=== PATIENT | male | born 1950 | race Caucasian/White ===

== ENCOUNTER → 2016-10-29 | Outpatient (CLI) | payer OTHER | LOC: GMAH 16:51 | PROVIDERS: ATTEND Family Medicine | DX: M25.50 Pain in unspecified joint (principal) ==

== ENCOUNTER → 2017-02-19 | Outpatient (CLI) | payer OTHER | LOC: GMAH 10:36 | PROVIDERS: ATTEND Family Medicine | DX: N40.1 Benign prostatic hyperplasia with lower urinary tract symptoms (principal); N39.498 Other specified urinary incontinence ==

== ENCOUNTER → 2019-08-24 | Outpatient (CLI) | payer OTHER | LOC: GMA MATASK 10:25 | PROVIDERS: ATTEND Family Medicine | DX: E53.8 Deficiency of other specified B group vitamins (principal) ==

== ENCOUNTER → 2020-04-22 | Outpatient (CLI) | payer OTHER | LOC: GMA MATASK 10:31 | PROVIDERS: ATTEND Family Medicine | DX: Z12.5 Encounter for screening for malignant neoplasm of prostate (principal); E78.2 Mixed hyperlipidemia; I10 Essential (primary) hypertension | CPT/HCPCS: 84443; 84550; G0103 ==

== ENCOUNTER 2020-11-12 14:15 | Emergency (ER) | payer MEDICARE, OTHER ==
--- NOTE | 2020-11-12 14:17 | ED.PDOC ---
History of Present Illness - General Stated Complaint: Unresponsiveness Time Seen by Provider: 11/12/20 14:17 Additional Information: EMS reports the patient was found unresponsive at [facility]. He had filled prescriptions for perphenazine 8 mg and tramadol 50 mg earlier today. The pharmacy reported he was trying to fill some additional prescriptions when he became unresponsive.No additional history was available regarding what happened at the pharmacy. - History of Present Illness Initial Comments: The patient was initially Unable to give any history due to his condition. Later The patient noted that he drank a full bottle of whiskey yesterday and took a large number of pills. He was unable to elaborate which pills he took or how many. He also was unable to definitively answer whether or not taking so many pills was With the intent of self-harm orSeeking sedation and sleep. Timing/Duration: 1 hour Severity: severe Improving Factors: nothing Worsening Factors: nothing Allergies/Adverse Reactions: Allergies NO KNOWN ALLERGY Allergy (Unverified 11/12/20 14:36) Home Medications: Ambulatory Orders Metoprolol Succinate [Metoprolol Succinate ER] 50 mg PO BEDTIME 02/24/13 Pantoprazole Suspension [Protonix Suspension] 40 mg PO BEDTIME 02/24/13 Clopidogrel Bisulfate [Plavix] 75 mg PO QD 02/18/19 Losartan Potassium [Cozaar] 50 mg PO DAILY 02/18/19 Perphenazine/Amitrip 2-25 [Triavil 2-25] 2 ea PO BEDTIME 02/18/19 Rosuvastatin Calcium [Crestor] 40 mg PO BEDTIME 02/18/19 Review of Systems - Review of Systems Unable to Obtain Due To: condition - Patient is difficult to arouse and speech is very slurred. He is unable to give any coherent history. Past Medical History (General) - Patient Medical History Hx Seizures: Yes - 1 in taking zanax and stopped Hx Stroke: No Hx Dementia: No Hx Asthma: No Hx of COPD: No Hx Cardiac Disorders: Yes - 3 [facility] Hx Congestive Heart Failure: No Hx Pacemaker: No Hx Hypertension: Yes Hx Thyroid Disease: No Hx Diabetes: No Hx Gastroesophageal Reflux: Yes Hx Renal Disease: No Hx Cancer: No Hx of HIV: No Hx Hepatitis C: No Hx MRSA: No - Vaccination History Hx Tetanus, Diphtheria Vaccination: No Hx Influenza Vaccination: No Hx Pneumococcal Vaccination: Yes - Social History Hx Tobacco Use: No Hx Chewing Tobacco Use: No Hx Alcohol Use: Yes - 33 years 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 Eye Exam: bilateral normal Ears, Nose, Throat: other - Tongue very dry Neck: non-tender, full range of motion, supple Respiratory: normal breath sounds Cardiovascular/Chest: regular rate, rhythm Gastrointestinal/Abdominal: normal bowel sounds, tenderness - Diffusely, moderate, without rebound, other - No distention Back Exam: normal inspection, no CVA tenderness Neurologic: no motor/sensory deficits, other - Very somnolent, arousable to verbal, speech extremely slurred. Skin Exam: normal color Lymphatic: no adenopathy Progress - Progress Progress: 11/12/20 16:01 Normal saline infusion 1 L. Second IV infusion 1 L with 20 mEq potassium infused. 11/12/20 16:48 Discussed with nurse Shetty at the [facility].Perphenazine usually causes an anticholinergic syndrome which this patient does not seem to displaying. Tramadol can cause somnolence and drowsiness and could account for the patient's symptoms. pNo specific intervention other than conservative management and observation is recommended at this time. 11/12/20 16:50 Vital signs pulse 57, sats 98% on room air, respirations 14 unlabored, blood pressure 93/57 after first liter infusion. Patient is somnolent but arousable to verbal stimuli. 11/12/20 17:16 Discussed with nurse practitioner Karey Hospitalist on-call for [facility]: Patient is not suitable for admission to this facility. 11/12/20 18:12 Still sleepy but easy to arouse. Pulse 61, SaO2 96% room air, respirations 22, blood pressure 104/63. Transfer decision made. 11/12/20 18:48 Patient reexamined. He is fully alert and comfortable. He states his abdominal pain and nausea vomiting have completely subsided. Patient states that yesterday he did not take an excessive amount of pills but "only what was prescribed".He denies any suicidal ideation or intent. He Feels safe of discharge. Patient had a suicidal gesture in his distant past but has not been treated for depression In recent years. He initially denied drug use but when confronted with the results of his drug screen he did admit to taking marijuana and Valium.Vital signs: Pulse 68, sats 96% on room air, respirations 14 unlabored, blood pressure 129/81. Decision for transfer put on hold at this point. Patient is to be observed emergency room for several hours and dischar ged if improving and clinically stable. 11/12/20 18:51 11/12/20 20:24 Patient is now fully alert and conversant, safely ambulatory on his own. 11/12/20 20:26 Medical decision makin-year-old male who presented with altered mental status due to combination of illicit drug use and prescribed medications. Patient is fully recovered and is now fully alert. He denies overdose of prescription medications but does admit to taking some Illicit medications. Patient was drinking heavily yesterday with vomiting but this is now subsided. He denies abdominal pain or nausea at this time. Patient was questioned in detail about suicidal ideation and plan. He denies these and feels safe to go home. Family members will take him home. - Results/Orders Results/Orders: Electrocardiogram: Normal sinus rhythm, 77/min, normal tracing, Narrow complexes. EXAM DESCRIPTION: CT-Head CLINICAL HISTORY: Altered mental status COMPARISON: 02/18/2019 TECHNIQUE: Multiple axial images of the head without contrast. Multiplanar reformatted images. This exam was performed according to our departmental dose-optimization program, which includes automated exposure control, adjustment of the mA and/or kV according to patient size and/or use of iterative reconstruction technique. FINDINGS: There is no CT evidence of intracranial hemorrhage, mass effect, or large territory infarction. Mild generalized volume loss. Mild patchy supratentorial white matter hypodensities. There are no abnormal extra-axial fluid collections. Calcific plaque in the visualized arteries. There is no acute calvarial defect. Mild mucosal thickening in the maxillary sinuses and ethmoid air cells with frothy air-fluid level in the left maxillary sinus. The mastoid air cells are clear. IMPRESSION: 1. No CT evidence of an acute intracranial abnormality. If there is concern for an acute or subacute infarct, consider follow-up MRI. 2. Senescent changes. 3. Acute on chronic left maxillary sinusitis. Electronically signed by: Gustavo Holman MD 11/12/2020 2:55 PM [employer] Abnormal Lab Results 11/12/20 11/12/20 11/12/20 14:20 14:20 14:20 WBC 4.7 L RBC 4.02 L Hgb 11.9 L Hct 35.0 L RDW 16.5 H MPV 7.3 L Absolute Lymphs (auto) 0.80 L Lymphocytes % 16.9 L Monocytes % 10.1 H Eosinophils % 8.1 H Sodium 133 L Potassium 2.7 L Chloride 94 L Anion Gap 11.7 L Serum Osmolality 265.6 L Calcium 8.0 L Serum Total Protein 5.8 L Lipase < 18 L Acetaminophen < 10.0 L Vital Signs - 24 hr 11/12/20 14:15 Temperature 97.9 F Pulse Rate [ 78 pulse ox] Respiratory 18 Rate Blood Pressure 82/56 [Left Arm] O2 Sat by Pulse 94 L Oximetry Vital Signs - 24 hr 11/12/20 11/12/20 11/12/20 14:15 15:15 16:15 Temperature 97.9 F Pulse Rate [ 78 78 63 pulse ox] Respiratory 18 18 16 Rate Blood Pressure 82/56 101/65 [Left Arm] O2 Sat by Pulse 94 L 95 Oximetry 11/12/20 11/12/20 11/12/20 17:15 18:00 19:00 Temperature Pulse Rate [ 65 63 68 pulse ox] Respiratory 20 14 14 Rate Blood Pressure 134/83 104/63 129/81 [Left Arm] O2 Sat by Pulse 95 88 L 93 L Oximetry Departure - Departure Clinical Impression: Acute alteration in mental status, Drug abuse Time of Disposition: 20:27 Disposition: Discharge to Home or Self Care Condition: Good Departure Forms: ED Discharge - Pt. Copy Instructions: Prescription Drug Abuse (DC), Marijuana Use and Addiction Diet: full liquid diet, resume usual diet Referrals: Hamlet Fuentes MD [Primary Care Provider] - 1-2 Weeks Home Medications: Ambulatory Orders Metoprolol Succinate [Metoprolol Succinate ER] 50 mg PO BEDTIME 05/24/13 Pantoprazole Suspension [Protonix Suspension] 40 mg PO BEDTIME 02/24/13 Clopidogrel Bisulfate [Plavix] 75 mg PO QD 02/18/19 Losartan Potassium [Cozaar] 50 mg PO DAILY 02/18/19 Perphenazine/Amitrip 2-25 [Triavil 2-25] 2 ea PO BEDTIME 02/18/19 Rosuvastatin Calcium [Crestor] 40 mg PO BEDTIME 02/18/19 Additional Instructions: Do not drink alcohol while taking your prescribed medications as this can Cause an overdose and caused her to be very sleepy or even stop breathing. Do not take illicit drugs for the same reason. If you develop increasing sleepiness, trouble breathing, abdominal pain or vomiting return to the emergency department. Transfer to Outside Facility - Transfer Information Decision to Transfer Date: 11/12/20 Decision to Transfer Time: 18:12 Reason for Transfer: specialized care not available
[2020-11-12] MEDS ORDERED: SODIUM CHLORIDE 0.9% 1000ML 1,000 ML IVS ONE ×2 (14:19→18:25)
[2020-11-12 14:32] VITALS: TEMP 97.9
--- NOTE | 2020-11-12 14:57 | CT ---
EXAM DESCRIPTION: CT-Head CLINICAL HISTORY: Altered mental status COMPARISON: 02/18/2019 TECHNIQUE: Multiple axial images of the head without contrast. Multiplanar reformatted images. This exam was performed according to our departmental dose-optimization program, which includes automated exposure control, adjustment of the mA and/or kV according to patient size and/or use of iterative reconstruction technique. FINDINGS: There is no CT evidence of intracranial hemorrhage, mass effect, or large territory infarction. Mild generalized volume loss. Mild patchy supratentorial white matter hypodensities. There are no abnormal extra-axial fluid collections. Calcific plaque in the visualized arteries. There is no acute calvarial defect. Mild mucosal thickening in the maxillary sinuses and ethmoid air cells with frothy air-fluid level in the left maxillary sinus. The mastoid air cells are clear. IMPRESSION: 1. No CT evidence of an acute intracranial abnormality. If there is concern for an acute or subacute infarct, consider follow-up MRI. 2. Senescent changes. 3. Acute on chronic left maxillary sinusitis. Electronically signed by: Gustavo Holman MD 11/12/2020 2:55 PM [facility]
[2020-11-12] MEDS ORDERED: KCL 20 MEQ/NS 1,000 ML IVS PRN (15:45)
[2020-11-12 20:30] VITALS: O2SAT 94
[2020-11-12 20:35] VITALS: BP 128/82
== END 2020-11-12 20:37 | disposition home or self-care (01) ==
LOC: ER 14:15
DX: R41.82 Altered mental status, unspecified (principal); F19.10 Other psychoactive substance abuse, uncomplicated; F12.90 Cannabis use, unspecified, uncomplicated; F13.90 Sedative, hypnotic, or anxiolytic use, unspecified, uncomplicated; J01.00 Acute maxillary sinusitis, unspecified; J32.0 Chronic maxillary sinusitis; R10.9 Unspecified abdominal pain; R11.2 Nausea with vomiting, unspecified; K21.9 Gastro-esophageal reflux disease without esophagitis; I10 Essential (primary) hypertension; I25.2 Old myocardial infarction; Z20.822 Contact with and (suspected) exposure to COVID-19; Z79.02 Long term (current) use of antithrombotics/antiplatelets; Z79.899 Other long term (current) drug therapy
CPT/HCPCS: 36415; 70450; 80053; 80307; 80320; 80329; 82550; 82553; 83690; 84484; 85025; 87635; 93005; J3480; J7030

== ENCOUNTER 2020-11-22 16:17 | Emergency (ER) | payer MEDICARE, OTHER ==
[2020-11-22 16:43] VITALS: O2SAT 96
[2020-11-22] MEDS ORDERED: POTASSIUM CHLORIDE ELIXIR 20 MEQ/15 ML UD PO ONE (17:11)
[2020-11-22] MEDS ORDERED: ALUMINUM & MAGNESIUM HYDROXIDE 30 ML UD PO ONE (17:23)
[2020-11-22] MEDS ORDERED: THIAMINE HCL 100 MG TAB PO ONE (17:25)
[2020-11-22] MEDS ORDERED: predniSONE 20 MG TAB PO ONE (17:26)
[2020-11-22] MEDS ORDERED: ONDANSETRON ODT 8 MG TAB SL ONE (17:26)
[2020-11-22] MEDS ORDERED: ASPIRIN TABLET 325 MG TAB PO ONE (18:10)
--- NOTE | 2020-11-22 18:54 | ED.PDOC ---
History of Present Illness - General Chief Complaint: Behavioral / Psych Stated Complaint: Medical clearance for [facility] admission Time Seen by Provider: 11/22/20 16:25 Source: patient, police Exam Limitations: clinical condition - History of Present Illness Initial Comments: The patient is a 70-year-old male presented emergency room with [facility] with the intent of going to an inpatient facility due to some bizarre behavior and delusions. The patient has been seen at [facility] before and they were planning on taking him today. The patient has been having some significant confusion. He is pleasant and cooperative. He has not threatening or harmful to anyone himself concluded. He is somewhat disheveled. He appears fairly thin but not markedly so. He is denying any symptoms aside from a little bit of stomach upset for the last for 5 days. No shortness of breath. No cough. Looking back over the patient's history he has had the psychiatric issues for at least the last 3 months. In talking with the patient he almost sounds more like a dementia patient rather than a strictly psychiatric patient. The patient has had some difficulties with alcohol in the past but denies frequent heavy alcohol use over the last 15 years or so. He reports that he did binge drink for up for 5 days a little more than 2 weeks ago. He was actually seen at the emergency room here for that episode. Patient denies any vomiting. He did he reports good oral intake. No syncope. No headache. No nuchal rigidity. Vital signs are stable here currently. He has not hypoxic. No runny nose or sore throat. 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 On exam below the delusion is that the patient is convinced he was on a trip to [place] 2 weeks ago. He was not. Timing/Duration: unsure Severity: moderate Improving Factors: nothing Worsening Factors: nothing Associated Symptoms: malaise Allergies/Adverse Reactions: Allergies NO KNOWN ALLERGY Allergy (Verified 11/22/20 16:44) Home Medications: Ambulatory Orders Metoprolol Succinate [Metoprolol Succinate ER] 50 mg PO BEDTIME 02/24/13 Pantoprazole Suspension [Protonix Suspension] 40 mg PO BEDTIME 02/24/13 Clopidogrel Bisulfate [Plavix] 75 mg PO QD 02/18/19 Losartan Potassium [Cozaar] 50 mg PO DAILY 02/18/19 Perphenazine/Amitrip 2-25 [Triavil 2-25] 2 ea PO BEDTIME 02/18/19 Rosuvastatin Calcium [Crestor] 40 mg PO BEDTIME 02/18/19 Aspirin (Buffered) 325 mg [Bufferin 325 mg] 1 ea PO QDPC #30 tab 11/22/20 B-Complex Vitamins [Vitamin B Complex] 1 tab PO DAILY #30 tab 11/22/20 Famotidine [Pepcid Tab] 20 mg PO BID #60 tab 11/22/20 predniSONE [Prednisone] 20 mg PO DAILY #5 tab 11/22/20 Review of Systems - Review of Systems Constitutional: States: malaise EENTM: States: no symptoms reported Respiratory: States: no symptoms reported Cardiology: States: no symptoms reported Gastrointestinal/Abdominal: States: nausea - Mild Genitourinary: States: no symptoms reported Musculoskeletal: States: no symptoms reported Skin: States: no symptoms reported Neurological: States: see HPI Endocrine: States: no symptoms reported All other Systems: No Change from Baseline Past Medical History (General) - Patient Medical History Hx Seizures: No Hx Stroke: No Hx Dementia: No Hx Asthma: No Hx of COPD: No Hx Cardiac Disorders: Yes - [place] x 3 Hx Congestive Heart Failure: No Hx Pacemaker: No Hx Hypertension: Yes Hx Thyroid Disease: No Hx Diabetes: No Hx Gastroesophageal Reflux: Yes Hx Renal Disease: No Hx Cancer: No Hx of HIV: No Hx Hepatitis C: No Hx MRSA: No Surgical History: no surgical history, noncontributory, appendectomy, other - Vaccination History Hx Tetanus, Diphtheria Vaccination: No Hx Influenza Vaccination: No Hx Pneumococcal Vaccination: No - Social History Hx Tobacco Use: Yes Hx Chewing Tobacco Use: No Hx Alcohol Use: Yes Hx Substance Use: No Hx Substance Use Treatment: No Hx Depression: No Hx Physical Abuse: No Hx Emotional Abuse: No Hx Suspected Abuse: No - Female History Patient is a Female of Child Bearing Age (10 -59 yrs old): No Patient : No Family Medical History - Family History Mother Family History: Unknown Age (years): 92 Living Status: Still Living Hx Family Stroke: Yes - tia Hx Cardiac Disease: Yes - bypass and stents Father Age (years): 54 Living Status: Cause of : heart attact Physical Exam - Physical Exam General Appearance: Alert, Comfortable, No apparent distress Eye Exam: bilateral normal Ears, Nose, Throat: hearing grossly normal, normal pharynx Neck: full range of motion, supple Respiratory: lungs clear, normal breath sounds, no respiratory distress, no accessory muscle use Cardiovascular/Chest: normal peripheral pulses, regular rate, rhythm, no edema Peripheral Pulses: radial,right: 2+, radial,left: 2+ Gastrointestinal/Abdominal: non tender, soft Rectal Exam: deferred Back Exam: no CVA tenderness, no vertebral tenderness Extremity: normal range of motion, non-tender, normal inspection, no pedal edema, normal capillary refill Neurologic: alert, normal mood/affect, oriented x 3 Skin Exam: normal color Comments: Vital Signs - 24 hr 11/22/20 11/22/20 16:18 16:31 Temperature 98.1 F Pulse Rate [ 70 70 Pulse ox] Respiratory 16 16 Rate Blood Pressure 124/69 [R arm] O2 Sat by Pulse 96 Oximetry Progress - Progress Progress: 11/22/20 18:56 The patient is a 70-year-old male presented emergency room for clearance for [facility]. The patient has tested positive for coronavirus. His only symptom seems to be some stomach upset at this point. He does carry a elevated D-dimer but no evidence DVT or pulmonary embolus clinically. The patient is going to be placed on aspirin daily for this. Additionally for the reflux and gastritis issues he is going to be placed on twice daily Pepcid. I am also going to place him on low-dose 20 mg prednisone daily for the next 5 days. I would like for him to start taking a vitamin B complex tablet. He did receive folate and thiamine doses here today. Additionally he has been instructed not to smoke anymore marijuana as this may severely negatively affect him. He is drug screen on the urine was positive for phencyclidine as well as benzodiazepines. The benzodiazepines are likely one of his home medications. The phencyclidine may be a false positive for one of the psychiatric medications, but it is also possible that his marijuana may have been laced with it. I would also help explain some of the delusions. All in all I believe the picture looks a little more like dementia and carine acute psychosis. The patient is to contact [facility] in a week for repeat evaluation. I do believe he needs neuropsychiatric evaluation. I want him to follow back up with his primary care doctor in a week as well. He is in no distress at this time. He does have a home to go back to. He will be allowed to go home as no psychiatric facility will take him as he is currently not a imminent risk to himself or others and he is coronavirus positive. elly winters [phone] - Results/Orders Results/Orders: EKG shows normal sinus rhythm at 72 bpm. Normal R wave progression. No ST segment or T wave changes indicative of acute ischemia. Normal QT interval. Single view chest x-ray shows no large-scale consolidation. No obvious acute pathology. Final read is pending at this time. Laboratory Results - last 24 hr 11/22/20 11/22/20 11/22/20 13:38 13:38 16:41 WBC RBC Hgb Hct MCV MCH MCHC RDW Plt Count MPV Absolute Neuts (auto) Absolute Lymphs (auto) Absolute Monos (auto) Absolute Eos (auto) Absolute Basos (auto) Neutrophils % Lymphocytes % Monocytes % Eosinophils % Basophils % PT 11.6 H INR 1.17 H PTT (SP) 29.6 D-Dimer, Quantitative 975.0 H* Sodium 137 Potassium 3.2 L Chloride 100 L Carbon Dioxide 27 Anion Gap 13.2 BUN 9 Creatinine 0.94 BUN/Creatinine Ratio 9.6 L Random Glucose 117 H Serum Osmolality 273.5 L Calcium 8.5 Magnesium 2.0 Total Bilirubin 0.8 AST 39 ALT 25 Alkaline Phosphatase 63 Creatine Kinase 777 H* CK-MB (CK-2) 15.1 H* CK-MB (CK-2) % 1.94 Troponin I < 0.02 C-Reactive Protein 6.7 H Serum Total Protein 6.8 Albumin 4.0 Globulin 2.8 Albumin/Globulin Ratio 1.4 TSH 2.72 Urine Color Urine Appearance Urine pH Ur Specific [place] Urine Protein Urine Glucose (UA) Urine Ketones Urine Blood Urine Nitrite Urine Bilirubin Urine Urobilinogen Ur Leukocyte Esterase Urine RBC Urine WBC Ur Epithelial Cells Urine Bacteria Urine Opiates Screen Urine Barbiturates Ur Phencyclidine Scrn U Amphetamin/Meth Scrn U Benzodiazepines Scrn U Cocaine Metab Screen U Cannabinoids Screen Ethyl Alcohol 11/22/20 11/22/20 11/22/20 16:41 16:41 17:52 WBC 6.0 RBC 4.19 L Hgb 12.3 L Hct 36.3 L MCV 86.7 MCH 29.3 MCHC 33.7 RDW 16.6 H Plt Count 204 MPV 7.6 Absolute Neuts (auto) 3.30 Absolute Lymphs (auto) 1.50 Absolute Monos (auto) 0.80 Absolute Eos (auto) 0.30 Absolute Basos (auto) 0.10 Neutrophils % 54.3 Lymphocytes % 25.6 Monocytes % 14.0 H Eosinophils % 4.7 Basophils % 1.4 PT INR PTT (SP) D-Dimer, Quantitative Sodium Potassium Chloride Carbon Dioxide Anion Gap BUN Creatinine BUN/Creatinine Ratio Random Glucose Serum Osmolality Calcium Magnesium Total Bilirubin AST ALT Alkaline Phosphatase Creatine Kinase CK-MB (CK-2) CK-MB (CK-2) % Troponin I C-Reactive Protein Serum Total Protein Albumin Globulin Albumin/Globulin Ratio TSH Urine Color Urine Appearance Urine pH Ur Specific [place] Urine Protein Urine Glucose (UA) Urine Ketones Urine Blood Urine Nitrite Urine Bilirubin Urine Urobilinogen Ur Leukocyte Esterase Urine RBC Urine WBC Ur Epithelial Cells Urine Bacteria Urine Opiates Screen Negative Urine Barbiturates Negative Ur Phencyclidine Scrn Positive H U Amphetamin/Meth Scrn Negative U Benzodiazepines Scrn Positive H U Cocaine Metab Screen Negative U Cannabinoids Screen Positive H Ethyl Alcohol < 5.10 11/22/20 17:52 WBC RBC Hgb Hct MCV MCH MCHC RDW Plt Count MPV Absolute Neuts (auto) Absolute Lymphs (auto) Absolute Monos (auto) Absolute Eos (auto) Absolute Basos (auto) Neutrophils % Lymphocytes % Monocytes % Eosinophils % Basophils % PT INR PTT (SP) D-Dimer, Quantitative Sodium Potassium Chloride Carbon Dioxide Anion Gap BUN Creatinine BUN/Creatinine Ratio Random Glucose Serum Osmolality Calcium Magnesium Total Bilirubin AST ALT Alkaline Phosphatase Creatine Kinase CK-MB (CK-2) CK-MB (CK-2) % Troponin I C-Reactive Protein Serum Total Protein Albumin Globulin Albumin/Globulin Ratio TSH Urine Color Yellow Urine Appearance Clear Urine pH 5.5 Ur Specific [place] 1.025 Urine Protein Negative Urine Glucose (UA) Negative Urine Ketones Negative Urine Blood Trace-intact H Urine Nitrite Negative Urine Bilirubin Negative Urine Urobilinogen 1.0 Ur Leukocyte Esterase Negative Urine RBC 1-3 Urine WBC 0-1 Ur Epithelial Cells 0-1 Urine Bacteria 0 Urine Opiates Screen Urine Barbiturates Ur Phencyclidine Scrn U Amphetamin/Meth Scrn U Benzodiazepines Scrn U Cocaine Metab Screen U Cannabinoids Screen Ethyl Alcohol Departure - Departure Clinical Impression: Elevated d-dimer, Gastroenteritis due to COVID-19 virus, Marijuana abuse, Delusions Disposition: Discharge to Home or Self Care Condition: Fair Departure Forms: ED Discharge - Pt. Copy, Patient Portal Self Enrollment Instructions: DI for Psychosis, Coronavirus Disease 2019 (COVID-19) Overview Diet: bland diet Activity: increase activity as tolerated Referrals: Hamlet Fuentes MD [Primary Care Provider] - 1-2 Weeks Prescriptions: Aspirin (Buffered) 325 mg [Bufferin 325 mg] 1 ea PO QDPC #30 tab Famotidine [Pepcid Tab] 20 mg PO BID #60 tab predniSONE [Prednisone] 20 mg PO DAILY #5 tab B-Complex Vitamins [Vitamin B Complex] 1 tab PO DAILY #30 tab Home Medications: Ambulatory Orders Metoprolol Succinate [Metoprolol Succinate ER] 50 mg PO BEDTIME 02/24/13 Pantoprazole Suspension [Protonix Suspension] 40 mg PO BEDTIME 02/24/13 Clopidogrel Bisulfate [Plavix] 75 mg PO QD 02/18/19 Losartan Potassium [Cozaar] 50 mg PO DAILY 02/18/19 Perphenazine/Amitrip 2-25 [Triavil 2-25] 2 ea PO BEDTIME 02/18/19 Rosuvastatin Calcium [Crestor] 40 mg PO BEDTIME 02/18/19 Aspirin (Buffered) 325 mg [Bufferin 325 mg] 1 ea PO QDPC #30 tab 11/22/20 B-Complex Vitamins [Vitamin B Complex] 1 tab PO DAILY #30 tab 11/22/20 Famotidine [Pepcid Tab] 20 mg PO BID #60 tab 11/22/20 predniSONE [Prednisone] 20 mg PO DAILY #5 tab 11/22/20 Additional Instructions: You have coronavirus. Wear your mask and attempt to stay away from other people for 1 week. 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 You need to take an aspirin daily. You need to take Pepcid 2 times daily. You need to eat a bland diet. You need to take your prednisone pill once daily. You need to take a vitamin B complex tablet once daily. You need to contact your primary care doctor in 1 week so that he can help you get set up for psychiatric follow-up. Avoid marijuana use. Return to the emergency room for any acute worsening.
--- NOTE | 2020-11-22 19:01 | RAD ---
EXAM DESCRIPTION: Chest,1 View 11/22/2020 6:59 PM TILTROTOR [employer]W CHIEF CLINICAL HISTORY: 70 years, Male, covid, confusion COMPARISON: 02/18/2019 FINDINGS: Single view of the chest was obtained portable. Prior films were compared. The heart is not enlarged. The thoracic aorta is unremarkable. The cardiomediastinal silhouette demonstrate to be unremarkable. Pulmonary vasculature is normal distribution. Costophrenic angles are sharp. No significant alveolar and/or interstitial infiltrates. No areas of consolidation or masses are seen. Degenerative changes both shoulders. The rest of the soft tissue and bony structures demonstrate to be unremarkable. IMPRESSION: NO ACUTE CARDIOPULMONARY DISEASE SEEN. Electronically signed by: José Antonio Briseno MD 11/22/2020 6:59 PM TILTROT[employer] CHIEF
[2020-11-22 19:19] VITALS: BP 148/86; TEMP 97.6
[2020-11-23] MEDS ORDERED: THIAMINE HCL 100 MG TAB PO SCH (09:00)
[2020-11-23] MEDS ORDERED: FOLIC ACID 1 MG TAB PO ONE (17:24)
== END 2020-11-22 19:19 | disposition home or self-care (01) ==
LOC: ER 16:17
DX: U07.1 COVID-19 (principal); A08.39 Other viral enteritis; F22 Delusional disorders; F12.10 Cannabis abuse, uncomplicated; R77.8 Other specified abnormalities of plasma proteins; R41.0 Disorientation, unspecified; K21.9 Gastro-esophageal reflux disease without esophagitis; I10 Essential (primary) hypertension; I25.2 Old myocardial infarction; Z87.891 Personal history of nicotine dependence; Z79.899 Other long term (current) drug therapy; Z79.82 Long term (current) use of aspirin; Z79.02 Long term (current) use of antithrombotics/antiplatelets
CPT/HCPCS: 36415; 71045; 80053; 80307; 80320; 81001; 82550; 82553; 83735; 84443; 84484; 85025; 85379; 85610; 85730; 86140; 86592; 87635; 93005; J7512

== ENCOUNTER 2020-11-24 13:46 | Emergency (ER) | payer MEDICARE ==
--- NOTE | 2020-11-24 13:48 | ED.PDOC ---
History of Present Illness - General Stated Complaint: Shortness of breath, dizziness, difficulty walking Time Seen by Provider: 11/24/20 13:48 Additional Information: Evaluated in this department on 22 November for bizarre behavior and delusions. Patient was to be evaluated for possible psychiatric inpatient placement. He was found to be Covid positive at that time. D-dimer was elevated at 975. Patient was also found to have a potassium of 3.2. Vital signs were unremarkable with a pulse of 70 and a blood pressure of 124/69 with sats 96% on room air. Because the patient had no signs and symptoms suggestive of pulmonary embolus CTA was not performed. Because the patient was Covid positive he cannot be admitted to the psychiatric facility and signed a safety contract with the psychiatric supervisor wheel shop. Urine drug screen was positive for phencyclidine, rohan zodiazepines, and cannabis. Alcohol level was not detected. The patient was brought in today by EMS, who reported ST elevations in leads V2 and III on their electrocardiogram prehospital. - History of Present Illness Initial Comments: Patient complains of exertional dyspnea with subjective fever without cough for the last few days. He also complains of subjective dizziness which sounds like vertigo. He also feels off balance and complains of difficulty walking. Patient denies headache, syncope, extremity weakness. slurred speech or facial droop. Patient is not complaining of chest pain but does complain of some "indigestion". 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 No aspirin taken today. Patient lives alone. He admits to smoking marijuana. He denies taking any other medications or drugs not prescribed for him. Timing/Duration: 24 hours Severity: moderate Improving Factors: rest Worsening Factors: movement Associated Symptoms: fever/chills, shortness of breath, other - Dizziness, difficulty walking Allergies/Adverse Reactions: Allergies NO KNOWN ALLERGY Allergy (Verified 11/24/20 14:11) Home Medications: Ambulatory Orders Losartan Potassium [Cozaar] 50 mg PO DAILY 02/18/19 Amitriptyline HCl [Amitriptyline Hydrochlori] 50 mg PO BEDTIME 11/24/20 Aspirin (Buffered) 325 mg [Bufferin 325 mg] 1 ea PO BEDTIME 11/24/20 Perphenazine 4 mg PO BEDTIME 11/24/20 Rosuvastatin Calcium 10 mg PO DAILY 11/24/20 Tramadol HCl 50 mg PO Q6H PRN 11/24/20 Review of Systems - Review of Systems Constitutional: States: chills, fever, malaise, weakness - Generalized EENTM: States: nose congestion Respiratory: States: short of breath Cardiology: States: see HPI, chest pain - "Indigestion" Gastrointestinal/Abdominal: States: no symptoms reported Genitourinary: States: no symptoms reported Musculoskeletal: States: back pain - Chronic, status post several vertebral fractures, no recent trauma Skin: States: no symptoms reported Neurological: States: other - Dizziness, difficulty walking Endocrine: States: no symptoms reported Hematologic/Lymphatic: States: no symptoms reported Past Medical History (General) - Patient Medical History Hx Seizures: No Hx Stroke: No Hx Dementia: No Hx Asthma: No Hx of COPD: No Hx Cardiac Disorders: Yes - OH x 3 Hx Congestive Heart Failure: No Hx Pacemaker: No Hx Hypertension: Yes Hx Thyroid Disease: No Hx Diabetes: No Hx Gastroesophageal Reflux: Yes Hx Renal Disease: No Hx Cancer: No Hx of HIV: No Hx Hepatitis C: No Hx MRSA: No - Vaccination History Hx Tetanus, Diphtheria Vaccination: No Hx Influenza Vaccination: No Hx Pneumococcal Vaccination: No - Social History Hx Tobacco Use: Yes Hx Chewing Tobacco Use: No Hx Alcohol Use: Yes Hx Substance Use: No Hx Substance Use Treatment: No Hx Depression: No Hx Physical Abuse: No Hx Emotional Abuse: No Hx Suspected Abuse: No - Female History Patient : No Family Medical History - Family History Mother Family History: Unknown Age (years): 92 Living Status: Still Living Hx Family Stroke: Yes - tia Hx Cardiac Disease: Yes - bypass and stents Father Age (years): 54 Living Status: Cause of : heart attact Physical Exam - Physical Exam General Appearance: Alert, Anxious, Comfortable Eye Exam: bilateral normal Ears, Nose, Throat: hearing grossly normal, normal ENT inspection Neck: non-tender, full range of motion Respiratory: chest non-tender, normal breath sounds Cardiovascular/Chest: regular rate, rhythm, tachycardia Gastrointestinal/Abdominal: normal bowel sounds, non tender, soft Back Exam: normal inspection, no vertebral tenderness Extremity: no pedal edema, no calf tenderness Neurologic: family services manager II-XII nml as tested, no motor/sensory deficits, alert, oriented x 3 - No facial droop, slurred speech, ulnar or leg drift., abnormal gait - Does walk without assistance without falling or swaying. Tandem gait is tentative and patient does not tend to fall., other - Romberg generally stable with minimal swaying, 1 foot balance slightly unsteady but does not fall. Progress - Progress Progress: 11/24/20 14:23 Aspirin 324 mg by mouth. Pepcid 20 mg IV. 11/24/20 15:13 Lovenox 50 mg subcutaneous given. IV bolus 500 mL normal saline given. Patient is calm and comfortable at this time. Patient was questioned in detail regarding psychiatric symptoms. He denies suicidal thoughts, plans for self-harm, attempts at self-harm. He feels safe at home and does live by himself. Patient denies hallucinations. He denies violence intent for harm to others or abnormal behaviors at home. The patient does admit that after leaving here yesterday he was feeling anxious over his Covid diagnosis. This is subsided and he is no longer feeling excessively anxious over this. 11/24/20 15:15 11/24/20 15:51 Explained all findings and need for transfer to patient, who is amenable to treatment plan. Call placed to [facility] [place] in [place] to seek bed placement. 11/24/20 16:[address] Lyle, hospitalist on-call for [facility] [place] in [place]: Will except for direct admission to a [facility] bed. Bed currently available. Medical decision makin-year-old male with history of coronary artery disease presenting with 1 day history of mild vague chest discomfort and exertional dyspnea. Patient was diagnosed yesterday with COVID-19. Patient electrocardiogram which does not show an ST elevation OH. Troponin is significantly elevated at 4.62. Patient has a significantly elevated D-dimer which was evaluated with a CTA of the chest which did not show a pulmonary embolism. Patient was given aspirin and Lovenox in the emergency department. Patient has a history of anxiety but at the current time does not have any acute psychiatric symptoms. Patient is suitable for monitored floor bed and cardiology evaluation. - Results/Orders Results/Orders: Electrocardiogram: Sinus tachycardia 119/min, no significant interval abnormalities, inverted T waves in leads V4 through V6, 1 mm STT elevation in lead V2 only, no other STT elevation or depression noted. Single view chest x-ray showed no acute pathology. TECHNIQUE: CTA Chest Computerized tomographic angiography of the chest was performed after the IV injection of iodinated nonionic contrast including image processing. The image data was postprocessed using 2-dimensional multiplanar reformatted (MPR) and 3-dimensional (MIP and/or volume rendered) techniques. Automated exposure control, adjustment of mA and/or kV according to patient size, or iterative reconstruction dose optimization techniques were utilized. Coronal and sagittal reconstructed imaging provided. Automated exposure control, adjustment of the mA and/or kV according to patient size, and/or use of iterative reconstruction technique. CLINICAL INFORMATION: MAIN Dyspnea, tachycardia, elevated D-dimer COMPARISON: CT abdomen and pelvis February 21, 2013. FINDINGS: Chest: Lungs: No pneumothorax. No consolidation. No effusions. No endobronchial lesions. Bibasilar dependent minimal subsegmental atelectasis. Heart And Pericardium: Heart size is within normal limits. No pericardial effus ion. Coronary artery disease. Coronary stent noted. Pulmonary Vessels: Main pulmonary artery is unremarkable. No pulmonary embolism. Aorta: No aneurysm. No dissection. Major branch arteries are within normal limits. Mild atherosclerotic disease. Mediastinum, Ela And Lymph Nodes: No enlarged lymph nodes. No mass. Distal half the esophagus is uniformly thick-walled with minimal stranding. A distinct enhancing lesion is not identified. Soft Tissues: Limited images of the thyroid are unremarkable. Axillary regions are unremarkable. Upper Abdomen: Small hiatal hernia. Bones: No suspicious osseous lesions on this limited examination of the skeleton. Metastatic disease better evaluated with bone scan. Degenerative changes are present in the spine. Endplate degenerative changes. Mild to moderate anterior wedge-shaped compression fracture deformity at T7 is chronic. IMPRESSION: * No pulmonary embolus. No aortic aneurysm. No dissection. * Minimal bibasilar dependent subsegmental atelectasis. * Nonspecific wall thickening of the distal half the esophagus. Findings could be related to esophagitis or lesion. Further evaluation with EGD or esophagogram may be helpful if clinically indicated. Not evident on prior. * Hiatal hernia. Similar to prior. Electronically signed by: Chandrakant Asher 11/24/2020 3:40 PM CAN REPAIRER 11/24/20 14:00 EKG STAT Laboratory Results - last 24 hr 11/24/20 11/24/20 11/24/20 14:08 14:08 14:09 WBC 13.5 H D RBC 4.81 Hgb 13.8 L Hct 42.0 MCV 87.2 MCH 28.6 MCHC 32.8 L RDW 16.7 H Plt Count 285 MPV 8.2 Absolute Neuts (auto) 11.10 H Absolute Lymphs (auto) 1.70 Absolute Monos (auto) 0.70 Absolute Eos (auto) 0.00 Absolute Basos (auto) 0.00 Neutrophils % 82.1 H Lymphocytes % 12.2 L Monocytes % 5.4 Eosinophils % 0.0 L Basophils % 0.3 PT 12.1 H INR 1.22 H PTT (SP) 25.9 D-Dimer, Quantitative 2380.0 H* Sodium 137 Potassium 3.7 Chloride 95 L Carbon Dioxide 24 Anion Gap 21.7 H BUN 24 H D Creatinine 0.90 BUN/Creatinine Ratio 26.7 H Random Glucose 126 H Serum Osmolality 279.4 Calcium 9.0 Magnesium Total Bilirubin 1.0 AST 53 H D ALT 28 Alkaline Phosphatase 75 Creatine Kinase 338 H* D CK-MB (CK-2) 18.1 H* CK-MB (CK-2) % 5.36 H Troponin I 4.62 H* B-Natriuretic Peptide Serum Total Protein 7.2 Albumin 3.9 Globulin 3.3 Albumin/Globulin Ratio 1.2 11/24/20 11/24/20 14:21 15:57 WBC RBC Hgb Hct MCV MCH MCHC RDW Plt Count MPV Absolute Neuts (auto) Absolute Lymphs (auto) Absolute Monos (auto) Absolute Eos (auto) Absolute Basos (auto) Neutrophils % Lymphocytes % Monocytes % Eosinophils % Basophils % PT INR PTT (SP) D-Dimer, Quantitative Sodium Potassium Chloride Carbon Dioxide Anion Gap BUN Creatinine BUN/Creatinine Ratio Random Glucose Serum Osmolality Calcium Magnesium 2.0 Total Bilirubin AST ALT Alkaline Phosphatase Creatine Kinase CK-MB (CK-2) CK-MB (CK-2) % Troponin I B-Natriuretic Peptide 2090.0 H* Serum Total Protein Albumin Globulin Albumin/Globulin Ratio Vital Signs - 24 hr 11/24/20 11/24/20 11/24/20 13:47 14:01 15:00 Temperature 99.4 F Pulse Rate [ 101 H 101 H 98 H Pulse ox] Respiratory 20 20 18 Rate Blood Pressure 99/69 102/67 [L arm] O2 Sat by Pulse 94 L 100 Oximetry 11/24/20 11/24/20 16:00 16:40 Temperature 98.8 F Pulse Rate [ 102 H 106 H Pulse ox] Respiratory 18 18 Rate Blood Pressure 96/60 105/66 [L arm] O2 Sat by Pulse 99 99 Oximetry Departure - Departure Clinical Impression: Dyspnea, Non-ST elevation [place] (NSTEMI), COVID-19, Anxiety Disposition: Transfer to Hospital Referrals: Hamlet Fuentes MD [Primary Care Provider] - 1-2 Weeks Home Medications: Ambulatory Orders Losartan Potassium [Cozaar] 50 mg PO DAILY 02/18/19 Amitriptyline HCl [Amitriptyline Hydrochlori] 50 mg PO BEDTIME 11/24/20 Aspirin (Buffered) 325 mg [Bufferin 325 mg] 1 ea PO BEDTIME 11/24/20 Perphenazine 4 mg PO BEDTIME 11/24/20 Rosuvastatin Calcium 10 mg PO DAILY 11/24/20 Tramadol HCl 50 mg PO Q6H PRN 11/24/20 Transfer to Outside Facility - Transfer Information Decision to Transfer Date: 11/24/20 Decision to Transfer Time: 15:45 Reason for Transfer: required specialist not available
[2020-11-24] MEDS ORDERED: ASPIRIN (CHEWABLE) 81 MG TAB PO ONE (14:13)
[2020-11-24] MEDS ORDERED: FAMOTIDINE IV PREMIX 20 MG in PREMIX BAG 1 BAG IVPB ONE (14:13)
--- NOTE | 2020-11-24 14:28 | RAD ---
: 1950. Technique: Portable AP chest x-ray. Comparison: November 22, 2020. Clinical history: Dyspnea, Covid positive. Heart size: Normal. Lungs: No acute consolidation. Pleura: No pleural effusion. No pneumothorax. Mediastinum and erik: Unremarkable. Skeletal: Unremarkable. Support tubings: None. Impression: 1. No acute changes in the chest. Electronically signed by: David Jaime MD 11/24/2020 2:26 PM MIX HOUSE OPERATOR
[2020-11-24] MEDS ORDERED: SODIUM CHLORIDE 0.9% 500ML 500 ML IVS ONE ×2 (14:33→15:50)
[2020-11-24] MEDS ORDERED: HYDROcodone 5MG/APAP 325MG 1 EA TAB PO ONE (14:34)
[2020-11-24] MEDS ORDERED: ENOXAPARIN SODIUM 60 MG/0.6 ML SYG SUBCU ONE (14:43)
--- NOTE | 2020-11-24 15:41 | CT ---
TECHNIQUE: CTA Chest Computerized tomographic angiography of the chest was performed after the IV injection of iodinated nonionic contrast including image processing. The image data was postprocessed using 2-dimensional multiplanar reformatted (MPR) and 3-dimensional (MIP and/or volume rendered) techniques. Automated exposure control, adjustment of mA and/or kV according to patient size, or iterative reconstruction dose optimization techniques were utilized. Coronal and sagittal reconstructed imaging provided. Automated exposure control, adjustment of the mA and/or kV according to patient size, and/or use of iterative reconstruction technique. CLINICAL INFORMATION: MAIN Dyspnea, tachycardia, elevated D-dimer COMPARISON: CT abdomen and pelvis February 21, 2013. FINDINGS: Chest: Lungs: No pneumothorax. No consolidation. No effusions. No endobronchial lesions. Bibasilar dependent minimal subsegmental atelectasis. Heart And Pericardium: Heart size is within normal limits. No pericardial effusion. Coronary artery disease. Coronary stent noted. Pulmonary Vessels: Main pulmonary artery is unremarkable. No pulmonary embolism. Aorta: No aneurysm. No dissection. Major branch arteries are within normal limits. Mild atherosclerotic disease. Mediastinum, Ela And Lymph Nodes: No enlarged lymph nodes. No mass. Distal half the esophagus is uniformly thick-walled with minimal stranding. A distinct enhancing lesion is not identified. Soft Tissues: Limited images of the thyroid are unremarkable. Axillary regions are unremarkable. Upper Abdomen: Small hiatal hernia. Bones: No suspicious osseous lesions on this limited examination of the skeleton. Metastatic disease better evaluated with bone scan. Degenerative changes are present in the spine. Endplate degenerative changes. Mild to moderate anterior wedge-shaped compression fracture deformity at T7 is chronic. IMPRESSION: * No pulmonary embolus. No aortic aneurysm. No dissection. * Minimal bibasilar dependent subsegmental atelectasis. * Nonspecific wall thickening of the distal half the esophagus. Findings could be related to esophagitis or lesion. Further evaluation with EGD or esophagogram may be helpful if clinically indicated. Not evident on prior. * Hiatal hernia. Similar to prior. Electronically signed by: Chandrakant Asher 11/24/2020 3:40 PM APPLICATION PENETRATION TESTER
[2020-11-24 17:23] VITALS: O2SAT 99
[2020-11-24 17:25] VITALS: BP 105/66; TEMP 98.8
== END 2020-11-24 16:40 | disposition short-term general hospital (02) ==
LOC: ER 13:46
DX: I21.4 Non-ST elevation (NSTEMI) myocardial infarction (principal); U07.1 COVID-19; F41.9 Anxiety disorder, unspecified; I25.10 Atherosclerotic heart disease of native coronary artery without angina pectoris; R00.0 Tachycardia, unspecified; K21.9 Gastro-esophageal reflux disease without esophagitis; I10 Essential (primary) hypertension; I25.2 Old myocardial infarction; Z79.82 Long term (current) use of aspirin; Z79.899 Other long term (current) drug therapy; Z86.73 Personal history of transient ischemic attack (TIA), and cerebral infarction without residual deficits; Z87.891 Personal history of nicotine dependence
CPT/HCPCS: 36415; 71045; 71275; 80053; 82550; 82553; 83735; 83880; 84484; 85025; 85379; 85610; 85730; 93005; J1650; J3490; J7040